=== PATIENT | female | born 1995 | race African-American/Black ===

== ENCOUNTER 2022-08-03 08:12 | Emergency (ER) | payer OTHER, SELFPAY ==
[2022-08-03] MEDS ORDERED: Tetracaine 0.5% PF 4 ML BOT ONE (09:06)
[2022-08-03] MEDS ORDERED: Fluorescein Opthalmic Strip ONE (09:06)
== END 2022-08-03 09:40 | disposition home or self-care (01) ==
LOC: CSHERS 08:12
DX: S05.02XA Injury of conjunctiva and corneal abrasion without foreign body, left eye, initial encounter (principal); Z77.098 Contact with and (suspected) exposure to other hazardous, chiefly nonmedicinal, chemicals; Y92.69 Other specified industrial and construction area as the place of occurrence of the external cause
CPT/HCPCS: 99283